=== PATIENT | male | born 1965 | race Hispanic/Latino ===

== ENCOUNTER → 2018-10-05 | Outpatient (CLI) | payer OTHER ==
[~2018-10-05] MED LIST: COLACE100 M1 PO; NORCO 10MG-325MG1 EA PO; SODIUM CHLORIDE 0.9% 50ML 50 ML ONE
[2018-10-05 17:55] LABS: BLOOD UREA NITROGEN 14 mg/dL (7-26); BUN/CREATININE RATIO 18 (6-25); CREATININE, SERUM 0.78 mg/dL (0.72-1.25); EST GLOMERULAR FILTRATION RATE > 60 ML/MIN (60-)
--- NOTE | 2018-10-05 18:02 | Diagnostic Imaging Report ---
EXAMINATION: CHEST 2 VIEWS INDICATION: History of nephrectomy. ^[id number] ^[id number] COMPARISON: 04/14/2015 FINDINGS: PA and lateral views TUBES and LINES: None. LUNGS: Lungs are well inflated. There is no evidence of pneumonia or pulmonary edema. PLEURA: No pleural effusion or pneumothorax. HEART AND MEDIASTINUM: The cardiomediastinal silhouette is unremarkable. BONES AND SOFT TISSUES: No acute osseous lesion. Soft tissues are unremarkable. UPPER ABDOMEN: No free air under the diaphragm. IMPRESSION: No acute thoracic abnormality. Signed by: Dr. Gerry Velazquez MD on 10/05/2018 5:59 PM
--- NOTE | 2018-10-06 07:46 | Diagnostic Imaging Report ---
EXAMINATION: CT of the abdomen and pelvis with contrast. TECHNIQUE: Spiral CT images of the abdomen and pelvis were performed from the lung bases to the lesser trochanters before and after the intravenous administration of 100 cc Isovue-370 and the oral administration of water. Renal mass protocol was performed. Coronal and sagittal reformatted images were obtained. COMPARISON: CT abdomen and pelvis with and without contrast 08/29/2014 CLINICAL HISTORY:Left renal cyst resected, surveillance DISCUSSION: ABDOMEN/PELVIS: LOWER THORAX:Unremarkable. HEPATOBILIARY: No focal hepatic lesions. Diffuse hepatic hypoattenuation. No intra-or extrahepatic biliary ductal dilation. The gallbladder is normal. SPLEEN: No splenomegaly. PANCREAS: No focal masses or ductal dilatation. ADRENALS: No adrenal nodules. KIDNEYS/URETERS: Multiple surgical clips in the left perirenal space and along the anterior aspect of the left kidney, with a cortical defect related to prior partial nephrectomy. Punctate focus of dystrophic calcification along the surgical margin is again noted. No abnormal enhancement or mass lesion in the surgical bed.. No renal, ureteral, or bladder calculi. No hydronephrosis. Urographic phase images show no filling defects within the upper collecting systems or ureters. PELVIC ORGANS/BLADDER: The urinary bladder is unremarkable. Prostate and seminal vesicles appear normal. PERITONEUM/RETROPERITONEUM: No ascites or pneumoperitoneum. LYMPH NODES: No pelvic sidewall, retroperitoneal, or mesenteric lymphadenopathy. VESSELS: Abdominal aorta, major branch vessels, and iliac arterial systems are well-visualized and patent. The common hepatic artery is replaced to the superior mesenteric artery. 2 left renal arteries and a single right renal artery. Surgical material along the proximal inferior mesenteric artery unchanged. GI TRACT: Suture line along the sigmoid colon related to prior partial colectomy unchanged. Remainder of the large bowel shows no evidence of distention or wall thickening the appendix is not identified in keeping with prior appendectomy there is no small bowel dilatation to suggest obstruction. BONES AND SOFT TISSUE: Very small fat-containing umbilical hernia. Otherwise no focal soft tissue abnormalities. Bone island in the left sacral ala, unchanged. No osseous destructive lesions. Partial left 11th and 12th rib defect from partial nephrectomy. IMPRESSION: Stable postsurgical changes related to prior partial left nephrectomy, without CT evidence of residual or recurrent tumor. Hepatic steatosis. Signed by: Dr. Álvaro López M.D. on 10/06/2018 7:43 AM
== END ==
LOC: CT 17:01
PROVIDERS: ATTEND Urology
DX: C64.2 Malignant neoplasm of left kidney, except renal pelvis (principal)
CPT/HCPCS: 36415; 71046; 74178; 82565; 84520